=== PATIENT | male | born 1970 | race Caucasian/White ===

== ENCOUNTER 2017-07-27 15:09 | Emergency (ER) | payer BC ==
[~2017-07-27] VITALS: Ht 165.1 cm; Wt 82.0 kg
[~2017-07-27 15:09] MED LIST: CEPH500C3 PO
[2017-07-27 15:12] VITALS: BP 144/91; PULSE 96; RESP 16; TEMP 98.2; O2SAT 95
--- NOTE | 2017-07-27 16:11 | PD ---
HPI Chief Complaint: Laceration/Skin Injury Time Seen by Provider: 15:31 Travel History International Travel<30 days: No Contact w/Intl Traveler<30days: No Traveled to known affect area: No History of Present Illness HPI 47-year-old male here with a laceration to the top of the scalp caused by a tree branch. Injury occurred prior to arrival. He was trimming branches to the branch the top of his head causing a laceration. He remained standing during the event. No fall to the ground. No loss consciousness. Symptom severity is moderate. No aggravating or alleviating factors. Tetanus immunization is up-to-date. PENDING SALE TO [facility] Past Medical History Medical History: Denies Significant Hx Diminished Hearing: No Past Surgical History Surgical History: No Previous Surgery Social History Alcohol Use: No Tobacco Use: No Substance Use: No Allergies-Medications (Allergen,Severity, Reaction): Coded Allergies: diclofenac (Unverified Allergy, Intermediate, Hives, 07/27/17) etodolac (Unverified Allergy, Intermediate, Hives, 07/27/17) flurbiprofen (Unverified Allergy, Intermediate, Hives, 07/27/17) ibuprofen (Unverified Allergy, Intermediate, Hives, 07/27/17) indomethacin (Unverified Allergy, Intermediate, Hives, 07/27/17) ketoprofen (Unverified Allergy, Intermediate, Hives, 07/27/17) ketorolac (Unverified Allergy, Intermediate, Hives, 07/27/17) naproxen (Unverified Allergy, Intermediate, Hives, 07/27/17) oxaprozin (Unverified Allergy, Intermediate, Hives, 07/27/17) Reported Meds & Prescriptions Reported Meds & Active Scripts Active Review of Systems Except as stated in HPI: all other systems reviewed are Neg Physical Exam Narrative GENERAL: Alert well-appearing 47-year-old male. No distress. SKIN: Warm and dry. 5 cm laceration to the top of the scalp. Bleeding well controlled. HEAD: Normocephalic. The skin noted above. EYES: Pupils equal, round, react to light. EOMs intact. No injection or drainage. NECK: Supple, trachea midline. MUSCULOSKELETAL: No cyanosis, or edema. NEUROLOGICAL: Awake and alert. Cranial nerves II through XII intact. Motor and sensory grossly within normal limits. Five out of 5 muscle strength in all muscle groups. Normal speech. Data Data Last Documented VS Vital Signs Date Time Temp Pulse Resp B/P (MAP) Pulse Ox O2 Delivery O2 Flow Rate FiO2 07/27/17 15:12 98.2 96 16 144/91 (108) 95 MDM Medical Decision Making Medical Screen Exam Complete: Yes Emergency Medical Condition: Yes Differential Diagnosis Scalp laceration, contusion, wound infection Narrative Course 47-year-old male with a 5 cm laceration to the top of the scalp. Patient has a normal neurologic exam. Bleeding was well controlled. Patient with quested sutures rather than Armin to to was thinning hair. The wound was extensively irrigated and sutured closed. Patient tolerated procedure well. Procedures Procedure Narrative LACERATION LOCATION: Scalp LENGTH: 5 CM NUMBER OF STITCHES/ARMIN: 5 REPAIR: The area of the laceration was prepped with Betadine and sterilely draped. The laceration was infiltrated with 1% lidocaine. The wound was copiously irrigated and explored without evidence of foreign body, tendon injury or neurovascular injury. The wound was closed using 3-0 Ethilon. This was a SINGLE layer repair. A sterile dressing was applied. The patient was advised to keep the dressing clean and dry. Patient tolerated the procedure well. Diagnosis Primary Impression: Scalp laceration Qualified Codes: S01.01XA - Laceration without foreign body of scalp, initial encounter Referrals: Primary Care Physician Additional Instructions: You may gently wash the area with soap and water in the shower. Do not submerge the wound in water such as pools, Garcia, hot tubs Sutures need to be removed in 7-10 days. Scripts No Active Prescriptions or Reported Meds Disposition: 01 DISCHARGE HOME Condition: Stable Elva Quintanilla Jul 27, 2017 16:11
== END 2017-07-27 16:17 | disposition home or self-care (01) ==
LOC: PHEFT 15:09
DX: S01.01XA Laceration without foreign body of scalp, initial encounter (principal); W22.8XXA Striking against or struck by other objects, initial encounter; Z88.6 Allergy status to analgesic agent; Z88.8 Allergy status to other drugs, medicaments and biological substances
CPT/HCPCS: 12002